=== PATIENT | male | born 1965 | race Caucasian/White ===

== ENCOUNTER 2018-06-18 06:16 | Day surgery (SDC) | payer BC ==
[~2018-06-18] VITALS: Ht 185.4 cm; Wt 95.5 kg
[2018-06-18 09:48] VITALS: BP 125/88; PULSE 71; TEMP 97.9
--- NOTE | 2018-06-18 10:36 | NUR ---
Two attempts by RN unsuccessful and Abdirizak Ernst EDGER HAND here to attempt IV start.
--- NOTE | 2018-06-18 10:58 | NUR ---
IV started by Abdirizak Ernst CRNA on third attempt in the left AC.
[2018-06-18 15:00] VITALS: BP 121/86; PULSE 64
--- NOTE | 2018-06-18 15:00 | NUR ---
Patient returns to room 7 per cart from PACU and is awake and alert. Dressing clean and dry on the right lower quadrant of the abdomen and kitchen set dry on the right groin area. IV fluids infusing left AC. Call light in reach and siderails up x2. Spouse in room.
[2018-06-18 15:15] VITALS: BP 121/82; PULSE 63
--- NOTE | 2018-06-18 15:15 | NUR ---
Drinking water. Denies pain or nausea.
[2018-06-18 15:30] VITALS: BP 120/73; PULSE 65
--- NOTE | 2018-06-18 15:30 | NUR ---
Patient assisted up to the bathroom and tolerates activity well. Returns to room and sitting up on the edge of the cart eating muffin and drinking juice. Dressing remains dry on RLQ and continues to deny pain or nausea.
[2018-06-18] MEDS ORDERED: NORCO 325 MG-51 TAB PO (15:52)
--- NOTE | 2018-06-18 16:05 | NUR ---
Given dismissal instructions and voices understanding of home cares and follow up as scheduled in [place] on 06/29/18 at 10:20am. Provided script for Stamps and given dismissal instructions. IV discontinued and site is free of swelling or redness. Patient dresses self.
--- NOTE | 2018-06-18 16:10 | NUR ---
Patient dismissed to home per private vehicle driven by spouse and taken to the front door per wheelchair by RN and assisted into vehicle with dsmissal instructions in hand.
[2018-06-18 16:22] VITALS: BP 121/86; PULSE 62; TEMP 97.2
== END 2018-06-18 16:10 | disposition home or self-care (01) ==
LOC: SDCO 06:16
DX: C43.59 Malignant melanoma of other part of trunk (principal); C77.4 Secondary and unspecified malignant neoplasm of inguinal and lower limb lymph nodes; F17.210 Nicotine dependence, cigarettes, uncomplicated
CPT/HCPCS: A9541; J0360; J0690; J1100; J1885; J2250; J2370; J2405; J2704; J3010; J7120

== ENCOUNTER → 2018-06-23 | Outpatient (REF) ==
[~2018-06-23] MED LIST: NORCO 325 MG-51 TAB PO
== END ==
LOC: ZLAB.WCH 17:28
DX: Z01.89 Encounter for other specified special examinations (principal)
CPT/HCPCS: G0103

== ENCOUNTER → 2021-03-16 | Outpatient (CLI) | payer BC | LOC: COL.VAS 11:55 | DX: Z01.810 Encounter for preprocedural cardiovascular examination (principal); C43.59 Malignant melanoma of other part of trunk; I34.0 Nonrheumatic mitral (valve) insufficiency ==

== ENCOUNTER → 2021-04-10 | Outpatient (CLI) | payer BC | LOC: COL.VAS 12:30 | DX: C43.59 Malignant melanoma of other part of trunk (principal) ==

== ENCOUNTER → 2021-07-03 | Outpatient (CLI) | payer BC | LOC: COL.VAS 11:29 | DX: Z01.810 Encounter for preprocedural cardiovascular examination (principal); I34.0 Nonrheumatic mitral (valve) insufficiency; C43.59 Malignant melanoma of other part of trunk ==

== ENCOUNTER 2021-08-03 16:46 | Inpatient (IN) | payer BC ==
[~2021-08-03] VITALS: Ht 185.4 cm; Wt 72.2 kg
[2021-08-03] MEDS ORDERED: BRAFTOVI75 MG PO (17:57)
[2021-08-03] MEDS ORDERED: MEKTOVI15 MG PO (17:57)
[2021-08-03 18:02] LABS: BASO % 0.7 % (0.0-2.0); EOS # 0.2 K/mm3 (0.0-0.7); EOS % 2.9 % (0.0-4.0); GRAN # 2.6 K/mm3 (1.4-6.5); GRAN % 46.3 % (42.2-75.2); HEMOGLOBIN 10.4 g/dl (13.5-18.0); LYMPH # 2.2 K/mm3 (1.2-3.4); LYMPH % 40.3 % (20.0-51.0); MEAN CELL VOLUME 86 fl (80.0-100.0); MEAN CORPUSCULAR HEMOGLOBIN 29 pg (27-31); MEAN CORPUSCULAR HGB CONC 33 g/dl (33.0-37.0); MEAN PLATELET VOLUME 10.2 fl (7.4-10.4); MONO # 0.5 K/mm3 (0.1-0.6); MONO % 9.6 % (1.7-9.3); PLATELET COUNT 166 K/mm3 (130-400); RED BLOOD COUNT 3.61 M/mm3 (4.20-5.60); REDCELL DISTRIBUTION WIDTH-CV 13.9 % (11.5-14.5)
[2021-08-03 18:04] LABS: HEMATOCRIT 31.1 % (42.0-52.0)
[2021-08-03 18:24] LABS: ALANINE AMINOTRANSFERASE 12 U/L (0-55); ALKALINE PHOSPHATASE 50 U/L (40-150); ANION GAP 12 mmol/L (7-16); AST,SGOT 20 U/L (5-34); BILIRUBIN,TOTAL 0.3 mg/dL (0.2-1.2); BLOOD UREA NITROGEN 42 mg/dL (8-26); CARBON DIOXIDE 22 mmol/L (22-29); CHLORIDE 105 mmol/L (98-107); CREATININE, serum 4.32 mg/dL (0.72-1.25); GLUCOSE 82 mg/dL (70-99); LIPASE 42 U/L (8-78); SODIUM 139 mmol/L (136-145); TOTAL PROTEIN 6.2 gm/dL (6.2-8.1)
[2021-08-03 18:33] LABS: TROPONIN-I < 0.010 ng/mL (0.00-0.033)
[2021-08-03 21:03] VITALS: BP 91/53; PULSE 89; TEMP 99
[2021-08-03 21:51] LABS: COLLECTION METHOD CLEAN CATCH
[2021-08-03 22:01] LABS: MUCOUS Present (NOT PRESENT); PH 5 (5-8); SQUAMOUS EPITHELIAL 0-2 /hpf (0-10); URINE APPEARANCE Hazy (CLEAR/HAZY); URINE BACTERIA Rare /hpf (NONE SEEN); URINE BILIRUBIN Negative (NEGATIVE); URINE BLOOD 1+ (NEGATIVE); URINE COLOR Yellow (YELLOW); URINE GLUCOSE Negative (NEGATIVE); URINE KETONE Negative (NEGATIVE); URINE LEUKOCYTE ESTERASE Negative (NEGATIVE); URINE NITRATE Negative (NEGATIVE); URINE PROTEIN(semi-quant) Negative (NEGATIVE); URINE RBC 0-2 /hpf (0-2); URINE UROBILINOGEN Negative (NEGATIVE)
[2021-08-04 01:01] VITALS: BP 89/49; PULSE 88; TEMP 98.5
[2021-08-04 04:55] VITALS: BP 91/48; PULSE 91; TEMP 99.2
--- NOTE | 2021-08-04 05:26 | NUR ---
PATIENT ADMITTED AROUND 0900 TO ROOM 357 FOR HYPOTENSION, CONTINUES WITH MAINTENANCE FLUIDS. ALSO INFORMED PA OF PATIENT SYSTOLIC PRESSURE IN THE 80'S AROUND 2300, BOLUS PATIENT DIRECTED THE REST OF FLUIDS AND RESTARTED ON MAINTENANCE FLUIDS AT 125ML/HR. PATIENT REMAINS ASYMPTOMATIC THROUGHOUT SHIFT. BED ALARM ON FOR FALL RISK AND SAFETY. AT BEDSIDE. PATIENT ON NEUTROPENIC PRECUATION DUE TO HX OF CANCER AND RECENTLY WAS STOPPED ON PO CHEMO MEDICATION. NO SKIN ISSUES SKIN SOMEWHAT PALE AND VERY DRY. PATIENT STATED HE HAS RECENTLY LOST A LOT OF WEIGHT AND HASN'T BEEN EATING OR DRINKING MUCH SINCE STARTING THE NEW MEDICATION. CHEMO MEDICATION CURRENTLY ON HOLD PER AND PATIENT.
[2021-08-04 07:24] LABS: BASO % 0.8 % (0.0-2.0); EOS # 0.1 K/mm3 (0.0-0.7); EOS % 3.1 % (0.0-4.0); GRAN # 1.7 K/mm3 (1.4-6.5); GRAN % 48.6 % (42.2-75.2); LYMPH # 1.3 K/mm3 (1.2-3.4); LYMPH % 35.4 % (20.0-51.0); MEAN CELL VOLUME 86 fl (80.0-100.0); MEAN CORPUSCULAR HGB CONC 33 g/dl (33.0-37.0); MEAN PLATELET VOLUME 10.7 fl (7.4-10.4); MONO # 0.4 K/mm3 (0.1-0.6); MONO % 12.1 % (1.7-9.3); PLATELET COUNT 115 K/mm3 (130-400); RED BLOOD COUNT 2.68 M/mm3 (4.20-5.60)
[2021-08-04 07:36] LABS: HEMOGLOBIN 7.6 g/dl (13.5-18.0); MEAN CORPUSCULAR HEMOGLOBIN 28 pg (27-31)
[2021-08-04 07:56] LABS: CREATININE, serum 3.34 mg/dL (0.72-1.25)
[2021-08-04 08:02] VITALS: BP 95/52; PULSE 97; TEMP 98.3
--- NOTE | 2021-08-04 10:32 | NUR ---
Sw met with patient to complete intake and discuss discharge plan. Patient's Dana present at bedside. Patient has a history of metastatic melanoma. Patient has been independent with his ADL's and does not utilize any DME to assist with mobility. Patient has no home oxygen needs. Patient's PCP is Dr. Olivarez and Dr. Damian for oncology. Dana states that they utilize [facility] because they have no prescription drug coverage with their insurance. Dana states that at this time he does not have a DPOA-HC established. SW asked hospitalist to discuss patient's code status. Patient is planning on returning home once medically ready. Discharge plan: Home with . May need HH
--- NOTE | 2021-08-04 10:37 | NUR ---
Initial visit; Patient and his thanked Director Of Health Care Marketing for looking in on them and offering God's blessings.
[2021-08-04 11:31] VITALS: BP 100/60; PULSE 85; TEMP 98.2
--- NOTE | 2021-08-04 11:53 | NUR ---
PT PLEASANT, AOX4, DENIES PAIN, SLOW RESPONSES TO QUESTIONS AT THIS TIME, PT SITTING UP EATING BREAKFAST, IMMODIUM GIVEN PER ORDER, HAT PLACED IN TOILET FOR STOOL SAMPLE. AT BEDSIDE, FRESH ICE WATER PROVIDED
[2021-08-04 15:44] VITALS: BP 105/60; PULSE 97; TEMP 99
--- NOTE | 2021-08-04 17:15 | NUR ---
PT PLEASANT, AOX4, DENIES DIARRHEA SINCE IMMODIUM, DENIES PAIN, AT BEDSIDE, IVF INFUSING, NO OTHER NEEDS
[2021-08-04 21:33] VITALS: BP 89/49; PULSE 87; TEMP 99.5
[2021-08-04 22:39] LABS: HEMATOCRIT 25.4 % (42.0-52.0); HEMOGLOBIN 8.3 g/dl (13.5-18.0)
--- NOTE | 2021-08-04 23:06 | NUR ---
UPDATED DARLING DRAKE IN REGARDS TO DROP OF HGB 7.6 PATIENT STARTED TO HAVE LOOSE STOOLS ON DAY SHIFT, GI PANEL COMPLETE. PENDING BOWEL MOVEMENT STOOL FOR OCCULT. PATIENT DID RECEIVE IMMODIUM DURING DAY SHIFT WELL. PATIENT ALSO WAS HAVING SOME NAUSEA WELL PRN ZOFRAN PROVIDED EFFETIVE PATIENT SLEEPING AT THIS TIME AND RELAXING. CONTNIUING ON IV MAITENANCE FLUIDS. RECENT HGB 8.3. PATIENT NO LONGER HAVING DIARRHEA AT THIS TIME. ENCOURAGING FLUIS WHILE AWAKE. AT BEDSIDE UPDATE ON PLAN OF CARE.
[2021-08-05 00:08] VITALS: BP 95/55; PULSE 109; TEMP 99.9
[2021-08-05 04:11] VITALS: BP 91/57; PULSE 102; TEMP 99.5
--- NOTE | 2021-08-05 05:24 | NUR ---
NO FURTHER LOOSE STOOLS NOTED THROUGHOUT SHIFT, PENDING STOOL FOR OCCULT. PATIENT WAS ABLE TO SLEEP THROUGHOUT SHIFT. NO FURTHER C/O NAUSEA WELL. PATIENT AT BEDSIDE.
[2021-08-05 06:53] LABS: BASO % 0.3 % (0.0-2.0); EOS # 0.1 K/mm3 (0.0-0.7); EOS % 1.8 % (0.0-4.0); GRAN # 2.1 K/mm3 (1.4-6.5); GRAN % 54.2 % (42.2-75.2); LYMPH # 1.1 K/mm3 (1.2-3.4); LYMPH % 29.5 % (20.0-51.0); MEAN CELL VOLUME 86 fl (80.0-100.0); MEAN CORPUSCULAR HGB CONC 33 g/dl (33.0-37.0); MONO # 0.5 K/mm3 (0.1-0.6); MONO % 13.9 % (1.7-9.3); PLATELET COUNT 116 K/mm3 (130-400); RED BLOOD COUNT 2.69 M/mm3 (4.20-5.60)
[2021-08-05 06:57] LABS: HEMATOCRIT 23.2 % (42.0-52.0); HEMOGLOBIN 7.7 g/dl (13.5-18.0); MEAN CORPUSCULAR HEMOGLOBIN 29 pg (27-31)
[2021-08-05 07:15] LABS: CREATININE, serum 2.63 mg/dL (0.72-1.25); MAGNESIUM 1.3 mg/dL (1.6-2.6); POTASSIUM 3.9 mmol/L (3.5-4.5)
[2021-08-05 07:29] VITALS: BP 96/57; PULSE 102; TEMP 98.6
[2021-08-05] MEDS ORDERED: MAG-OX 400400 MG/TAB PO (09:06)
--- NOTE | 2021-08-05 09:09 | NUR ---
PT SLEEPING UPON ENTRY, MAG HUNG PER ORDER, ASSESSMENT PERFORMED, NO OTHER NEEDS
--- NOTE | 2021-08-05 11:19 | NUR ---
DISCHARGE EDUCATION PROVIDED TO PT AND PT . QUESTIONS ANSWERED ABOUT MAGNESIUM SUPPLEMENT. IV'S REMOVED AT THIS TIME. NO OTHER NEEDS
--- NOTE | 2021-08-05 11:49 | NUR ---
PT ESCORTED OUT VIA WHEELCHAIR WITH PT BELONGINGS AND DISCHARGE PAPERWORK, ON OTHER NEEDS
== END 2021-08-05 11:40 | disposition home or self-care (01) | DRG 683 ==
LOC: COL.ER 16:46 → MEDICAL 19:35
PROVIDERS: Emergency Medicine; Student in an Organized Health Care Education/Training Program; ADMIT Internal Medicine
DX: N17.9 Acute kidney failure, unspecified (principal); E87.2 Acidosis; K52.1 Toxic gastroenteritis and colitis; C79.9 Secondary malignant neoplasm of unspecified site; I95.9 Hypotension, unspecified; D64.9 Anemia, unspecified; E83.42 Hypomagnesemia; R62.7 Adult failure to thrive; D69.6 Thrombocytopenia, unspecified; T45.1X5A Adverse effect of antineoplastic and immunosuppressive drugs, initial encounter; Z20.822 Contact with and (suspected) exposure to COVID-19; Z23 Encounter for immunization
CPT/HCPCS: 99223-AI; 99232-AI; 99239; J2405; J2765; J3475; J7030; J7120